=== PATIENT | female | born 1955 | race Hispanic/Latino ===

== ENCOUNTER → 2022-08-26 10:16 | Outpatient (CLI) | payer OTHER, SELFPAY ==
[2022-08-26 11:36] LABS: COVID19 -Nasal RAPID Negative (Negative)
== END ==
PROVIDERS: PCP Nurse Practitioner Adult Health; Referring Provider Orthopaedic Surgery; Visit Provider Orthopaedic Surgery
DX: Z20.822 Contact with and (suspected) exposure to COVID-19 (principal)
CPT/HCPCS: 87635; C9803

== ENCOUNTER 2022-08-28 10:07 | Day surgery (SDC) | payer OTHER, SELFPAY ==
[2022-08-21 10:01] VITALS: BMI 40.7
[2022-08-28] VITALS (13 sets, daily range): BP systolic 77–152; BP diastolic 42–70; PULSE 45–73; RESP 12–20; TEMP 36–36.6; O2SAT 52–99; BMI 40.7
--- NOTE | 2022-08-28 06:00 | DI.RAD.S_ITS ---
PROCEDURE: XR KNEE RT 1TO2V INDICATIONS: TKA TECHNIQUE: 2 view(s) of the knee acquired. COMPARISON: None. FINDINGS: Bones: Patient is status post knee joint arthroplasty. Hardware components are in expected positions. Visualized bony structures are intact. Soft tissues: Overlying postoperative changes are noted. IMPRESSION: Right knee arthroplasty with expected postoperative changes. Dictated by: Justin Pickett M.D. on 08/28/2022 at 15:02 Approved by: Justin Pickett M.D. on 08/28/2022 at 15:03
[2022-08-28] MEDS: CELECOXIB 200 MG CAPSULE PO (11:08)
[2022-08-28] MEDS: LACTATED RINGERS 1,000 ML 42 ML IV ×2 (11:08→14:13)
[2022-08-28] MEDS: PREGABALIN 75 MG CAPSULE PO (11:08)
[2022-08-28] MEDS: ACETAMINOPHEN 325 MG TABLET 975 MG PO (11:09)
--- NOTE | 2022-08-28 12:09 | PM.PREOP ---
Pre-operative Note COVID-19 COVID-19 status: Negative Result date/Date tested (Pos, Neg/Pending): 08/26/22 Interval Note History & Physical reviewed/Exam performed by Physician: Yes Changes to H&P: No
[2022-08-28] MEDS: CEFAZOLIN 2 GM/100 ML PREMIX 100 ML IV ×2 (12:52→18:14)
[2022-08-28] MEDS: TRANEXAMIC ACID 1,000 MG VIAL 2000 MG INJ ×2 (13:10→14:13)
--- NOTE | 2022-08-28 13:18 | SUR.OPER ---
Supine on padded OR bed, head on pillow, arms secured on padded arm boards at <90 degrees abduction, legs uncrossed, safety belt at abdomen, tape over blanket over lower left leg. right leg secured in [employer] positioner and padded with foam. Secured with coban
[2022-08-28] MEDS: BUPIVACAINE LIPOSOME 266 MG/20 ML VIAL INJ (13:37)
[2022-08-28] MEDS: BUPIVACAINE 0.5% W/ EPI (PF) 30 ML VIAL INJ (13:38)
[2022-08-28] MEDS: MORPHINE 4 MG/ML INJ INJ (13:39)
--- NOTE | 2022-08-28 14:41 | P.OP_ITS ---
Operative Date/Time/Diagnoses Date of procedure: 08/28/22 Time of procedure: 14:41 Pre-op diagnosis: Right knee osteoarthritis Post-op diagnosis: same Procedure & Clinicians Procedure: Right total knee replacement Same procedure as scheduled: Yes Indications: The patient has had progressively worsening right knee pain with radiographic changes consistent with arthritis. Non-operative management has failed and the patient has requested total knee replacement. The risks, benefits and alternatives to surgery were discussed with the patient prior to proceeding. Risks discussed included, but were not limited to, failure to relieve pain, stiffness, infection, nerve damage, deep venous thrombosis, pulmonary embolism, stroke, coma, heart attack, permanent paralysis and , as well as the potential need for eventual revision of the prosthetic. Surgeon: Joseph Manjarrez Spouting Installer: Ochoa Edmondson Click Yes if Unassisted: No Anesthesia Type: General, Spinal and Local Operative Notes Findings: Severe medial compartment osteoarthritis with moderate patellofemoral change, there was severe erosion of the medial tibial plateau, necessitating the use of a stabilized tibial prosthesis. Closure Type: primary Specimen(s): none sent Prosthetic devices, grafts, tissues, transplants, or devices: Implants used in this procedure were manufactured by the [employer] and included the BCS II Journey total knee replacement with a size 3 right non porous tibial base plate with a 10 mm cross-linked polyethylene constrained tibial insert. There was a size 3 right Oxinium femoral component and a 29 mm oval Lary II patella. Applied: implant(s) Estimated Blood Loss (mL): 25 Blood products transfused: none Tourniquet time (min): 56 Procedure in detail: The patient was seen in the pre-operative area, where the patient identified the right knee as the operative site and this was marked with my initials. The patient received pre-operative antibiotics, and was taken to the operating room and placed on the operative table in the supine position. After satisfactory anesthesia, a manager maritime out was performed. The right leg was encircled with a tourniquet about the proximal thigh, and the leg was prepared from the toes to the tourniquet with ChloroPrep in the usual fashion and draped through sterile drapes. The leg was elevated and exsanguinated with Eschmark bandage and the tourniquet inflated to 250 mmHg pressure. The knee was approached through an approximately 18 cm incision centered over the patella and carried into the knee through a medial parapatellar arthrotomy. The anterior osteophytes and soft tissues were removed. The rotational landmarks of [place]'s line and the transepicondylar axis were marked on the femur with electrocautery, and intramedullary guide holes for the femur and tibia were created. The distal femoral cut was made in 6 degrees of valgus using the intramedullary guide at the primary cut setting. The proximal tibial cut was then made using the intramedullary guide, taking 9 mm of bone off the less involved side. The extension gap was checked and the rotation of the femoral component confirmed with the gap balancing system. The anterior, posterior and chamfer cuts were then made. The posterior osteophytes and soft tissues were then removed. The posterior capsule was injected with part of a mixture of 60 ml 0.25% Marcaine mixed with 20 ml Exparel and 4 mg of morphine for post-operative pain control. The remainder of this mixture was injected into the capsule and subcutaneous tissues during cement curing. The tibia was prepared with the rotation set by an extra medullary guide. Trial tibial and femoral components were then placed and the intercondylar notch cut through the femoral trial. Range of motion was 0-135 degrees, with good stability throughout the range using a stabilized tibial insert. The patella was then cut to accommodate the patellar prosthetic. There was no need for a lateral release. The trials were then removed, and the femoral hole plugged with a bone plug. The bone was prepared with pulsatile lavage, and dried with a sponge. Cement was applied and the final prosthetics placed. Excess cement was removed during and after cement curing. After confirming there was no extruded cement posteriorly, the final tibial insert was placed. The knee was copiously irrigated and the tourniquet deflated. Hemostasis was obtained. The capsule was closed with interrupted # 2 polyester suture. The subcutaneous layer was closed with 3-0 Vicryl, and the skin with edilson. An Aquacel Ag dressing was applied and the patient was taken to recovery having tolerated the procedure well. The services of a skilled surgical instrument mechanic were necessary during this procedure to provide positioning, retraction to protect vital structures and exposure. Without the services of Mr. Edmondson, the procedure could not have been accomplished in a safe, expedient fashion Complications: none Post-operative Condition: stable Disposition: PACU Plan for aftercare: The patient will be maintained on a standard total knee replacement protocol with weight bearing as tolerated. The patient will receive aspirin and seque ntial compression devices for DVT prophylaxis. The patient will be discharged home when safe for the home environment.
[2022-08-28] MEDS: OXYCODONE IR 5 MG TABLET PO ×3 (15:01→23:20)
--- NOTE | 2022-08-28 15:31 | PC.NURSE ---
Day shift: Patient arrived to room approximately 1520. 97% on room air. CMS intact. Surgical dressing marybel wrapped with aquacel on right knee CDI. VSS. Will continue to monitor.
--- NOTE | 2022-08-28 16:11 | PC.NURSE ---
Addendum entered by [place] R.N. 08/28/22 16:55: Day shift: 1654 Dr. Manjarrez called back regarding the bradycardia. Stated he is okay with it as long as she is asymptomatic. No new orders. Will continue to monitor. Original Note: Day shift: Patient is bradycardic, high 40's low 50's. Left message on Dr. Manjarrez' cell. Spoke with the PA Yolanda just now, PA assessing patient right now.
[2022-08-28] MEDS: LACTATED RINGERS 1,000 ML 100 ML IV ×2 (16:26→21:47)
[2022-08-28] MEDS: IBUPROFEN 400 MG TABLET PO ×2 (17:11→20:21)
[2022-08-28] MEDS: ACETAMINOPHEN 325 MG TABLET 650 MG PO ×2 (17:11→23:19)
[2022-08-28] MEDS: ASPIRIN EC 81 MG TABLET PO (20:21)
[2022-08-28] MEDS: DOCUSATE 100 MG CAPSULE PO (20:21)
[2022-08-28] MEDS: OXYCODONE IR 10 MG TABLET PO (20:21)
[2022-08-29] MEDS: IBUPROFEN 400 MG TABLET PO ×6 (01:50→21:51)
[2022-08-29 03:00] VITALS: BP 109/46; PULSE 52; RESP 18; TEMP 36.2; O2SAT 95
[2022-08-29] MEDS: CEFAZOLIN 2 GM/100 ML PREMIX 100 ML IV (03:28)
[2022-08-29] MEDS: hydrOXYzine pamoate 25 MG CAPSULE PO (03:35)
[2022-08-29] MEDS: ACETAMINOPHEN 325 MG TABLET 650 MG PO ×3 (05:55→18:14)
[2022-08-29 06:02] VITALS: BP 117/52; PULSE 48; RESP 18; O2SAT 97
--- NOTE | 2022-08-29 06:04 | PC.NURSE ---
Patient's right knee pain well controlled with scheduled Tylenol and Ibuprofen plus Oxy 5 mg x1, Oxy 10 mg x1, and Vistaril x1 during the night. Patient's HR in mid to upper 40's throughout night, BP currently 117/52. Patient c/o dizziness when up. LR infusing at 100cc/hr. Patient denies any SOB or nausea. Up to BR with assist of one and FWW, bed alarm on.
[2022-08-29 07:00] VITALS: BP 122/50; PULSE 46; RESP 17; TEMP 36.4; O2SAT 98
[2022-08-29 07:07] LABS: Hematocrit 34.3 % (36-46); Hemoglobin 11.2 g/dL (12.0-16.0)
--- NOTE | 2022-08-29 07:59 | PM.PNPO.1 ---
Subjective Subjective Date Patient Seen: 08/29/22 Time Patient Seen: 07:59 Interval history: Pt sitting up in bed, not comfortable but not writhing in pain. She is primarily taiwanese-speaking, though she seems to understand my marshallese and repond in marshallese appropriately. She has been out of bed 3 times overnight to use the bathroom, and while she has no difficulty voiding, she has quite a bit of knee pain. She has not worked w/ PT yet. Exam Vital Signs (past 8 hours): - 08/29/22 03:00 08/29/22 06:02 Temperature 97.1 F L Pulse Rate 52 L 48 L Respiratory Rate 18 18 Blood Pressure 109/46 L 117/52 L Pulse Oximetry 95 97 Oxygen Flow Rate 0 0 Oxygen Delivery Method Room Air Oxygen Flow Rate 0 Narrative Exam Narrative: Very hesitant with all movement. 3/5 hip flexors, quadriceps, hamstrings, DF, PF, EHL on right. Sensation to light touch intact throughout RLE. Calf soft, compressible, nontender and without palpable cords or masses. JUSTINE and Aquacel CDI. Objective Labs 08/29/22 06:29 Labs: Laboratory Results - last 24 hr 08/29/22 06:29 Hgb 11.2 L Hct 34.3 L PFSH Medical History COVID-19 virus infection (~10/2019) Depression Osteoarthritis Cam[place]onian speaking patient Surgical History (Updated 08/29/22 @ 08:04 by Esther Garner PA-C) Hx of eye surgery Social History household members: other Smoking Status: Never smoker alcohol intake: current Assessment & Plan Post-op Assessment and plan (1) Total knee replacement status: Assessment and Plan narrative: PT, SCDs and ASA for VTE prophylaxis, multimodal pain control. Disposition per PT and case management; pt has no help at home. (2) Acute postoperative anemia due to expected blood loss: Assessment and Plan narrative: No intervention needed at this time. (3) Bradycardia following surgery: Assessment and Plan narrative: In review of preop EKG from 08/05/2022, HR was 52, so pt is relatively at baseline. Recommend continue IVF through today. Will continue to follow. Postoperative Procedures: Procedures Operation Date: 08/28/22 12:45 Actual Procedure Side Surgeon p Total Knee Arthroplasty Right Joseph Manjarrez MD Postoperative day: 1
[2022-08-29] MEDS: OXYCODONE IR 5 MG TABLET PO ×4 (08:02→18:13)
[2022-08-29] MEDS: DOCUSATE 100 MG CAPSULE PO ×2 (08:02→20:25)
[2022-08-29] MEDS: ASPIRIN EC 81 MG TABLET PO ×2 (08:02→20:25)
--- NOTE | 2022-08-29 10:15 | PT.IIE ---
Current Diagnoses Acute posthemorrhagic anemia (08/28/22) Other postprocedural complications and disorders of the circulatory system, not elsewhere classified (08/28/22) Unilateral primary osteoarthritis, right knee (08/28/22) Presence of unspecified artificial knee joint (08/28/22) Surgery Performed Operation Date: 08/28/22 12:45 Actual Procedures p Total Knee Arthroplasty(Right) - Joseph Manjarrez MD Surgical History (Last Reviewed 08/28/22 @ 10:37 by Caridad Villegas RN) Hx of eye surgery Medical History COVID-19 virus infection (~10/2019) Depression Osteoarthritis [place] speaking patient Physical Therapy Inpatient Evaluation/Re-Eval M1 PT/OT-IP Prior Functional Status Start: 08/29/22 12:41 Freq: NEEDED Status: Active Protocol: Document 08/29/22 10:15 AB (Rec: 08/29/22 13:04 AB [email or web address]) Medical Review Prior Functional Status Medical History Reviewed Yes Communication able to make needsknown Mobility and Gait pt stated that she is modified indepednet with all moblities using her hurrycane for ambulation but occasionally uses a FWW Social History Household Members other Living Arrangements Apartment/Condo Number of Floors (Floors) Two Floors Number of Stairs To Enter/Railing? no steps to enter the apartment but has 15 steps L rail ascending to get to bedroom level Home Environment Standard Height Toilet,Tub/ Shower Home Equipment Front Wheel Walker,Shower Seat with Backrest Additional Social History Comment pt stated that she has a roommate but cannot assist her ; pt stated that her other option is to go to her sister' s house but has not asked her sister yet pt has a hurrycane M2 PT-IP Current Condition Start: 08/29/22 12:41 Freq: NEEDED Status: Active Protocol: Document 08/29/22 10:15 AB (Rec: 08/29/22 13:04 AB [email or web address]) Physical Therapy Current Condition Current Condition Evaluation Date 08/29/22 Treatment Diagnosis s/p R TKA; difficulty in walking Onset Date 08/28/22 M3 PT-IP Subjective Start: 08/29/22 12:41 Freq: NEEDED Status: Active Protocol: Document 08/29/22 10:15 AB (Rec: 08/29/22 13:04 AB [email or web address]) Subjective Physical Therapy Visit Type Type Initial Evaluation Visit Start Time 10:15 Visit Stop Time 10:55 Total Visit Minutes 40 Number of PARTS CLASSIFIER Visits 0 Physical Therapy Visit Comments Patient Comments agreeable to do PT Therapy Pain Assessment Pain When Pain Assessed At Rest Pain Present Pain Present Pain Reported Location right knee Intensity 4 Scale Used increases with mobility Pain Management Techniques Apply Cold,Distraction, Modification of Treatment,Re- positioning,Timing of Activity with Medications M4 PT-IP Mobility and Gait Start: 08/29/22 12:41 Freq: NEEDED Status: Active Protocol: Document 08/29/22 10:15 AB (Rec: 08/29/22 13:04 [email or web address]) PT-Bed Mobility Assessment Supine to Sit Supine to Sit Standby Assistance PT-Transfer Assessment Sit to and From Stand Sit to and from Stand Moderate Assistance,1 Person Assistance,Use of Upper Extremities Equipment Transfer Assistive Device Gait Belt,Front Wheeled Walker Orthotic/Prosthetic Devices or Brace: No Transfers Transfer Destination Chair Transfer Technique Stand Step Pivot Transfer Ability Level of Assist Moderate Assistance,1 Person Assistance,Use of Upper Extremities Comments Mobility Comments BP: 116/49 completed supine to sit SBA and cues. pt required increase time to complete task. pt able to sit on EOB SBA. BP : 124/52. completed sit to stand mod A and cues and took ~ 2-3 steps to transfer onto the chair using FWW mod A and max cues. presents with unsteady steps and decrease step elevation. c/o increase knee pain. refused further ambulation due to pain and fatigue but agreed to sit up on the chair. positioned on the chair. call light and table placed within reach. informed pt regarding current level of assistance and possible needing SNF rehab and pt agreed. Gait Assessment Assistive Devices Orthotic/Prosthetic Devices or Brace: No Comments Gait Comments able to take steps for transfers PT-Balance Assessment Sitting Balance and Reactions Static Sitting Balance Ability Normal Dynamic Sitting Balance Ability Good Standing Balance and Reactions Static Standing Balance Ability Fair Dynamic Standing Balance Ability Fair Device Used FWW M5 PT-IP Objective Assessments Start: 08/29/22 12:41 Freq: NEEDED Status: Active Protocol: Document 08/29/22 10:15 AB (Rec: 08/29/22 13:04 [email or web address]) Orientation Orientation/Cognition Level of Alertness Alert Orientation Name,Place,Situation Language Function Ability Swedish as Second Language Safety Awareness Decreased Safety Awareness Gross Range of Motion Lower Extremity ROM Assessment Right Impaired Impairments R knee flexion: ~ 30 deg Strength Lower Extremity Strength Assessment Bilaterally Impaired Ankle R ankle foot drop Comments Strength Comments LLE: 4-/5 RLE: 3+/5 Muscle Tone Muscle Tone WNL Yes M6 PT-IP Treatment Start: 08/29/22 12:41 Freq: NEEDED Status: Active Protocol: Document 08/29/22 10:15 AB (Rec: 08/29/22 13:04 AB [email or web address]) Physical Therapy Treatment Exercises Exercises Heel Slides Education Education Provided Precautions,Weight Bearing Status,Post-Op Packet,Safety M7 PT-IP Assessment and Plan Start: 08/29/22 12:41 Freq: NEEDED Status: Active Protocol: Document 08/29/22 10:15 AB (Rec: 08/29/22 13:04 AB [email or web address]) PT Summary Assessment and Plan Potential Rehabilitation Potential Fair Status of Condition at Evaluation Evolving Summary Impairments Pain,ROM,Strength,Balance, Coordination,Sensation,Tone, Cognition,Bed Mobility, Transfers,Gait,Activity Tolerance Assessment Summary pt requiring mod A with transfers using FWW. c/o increase knee pain and fatigue and unable to ambulate this morning. pt has 15 steps to enter the house and is not appropriate to do stair climbing at this time. pt will not have assistance at home and needs to be more independent to safely d/c home . pt will require SNF rehab at this time. will continue to assess progress. Goals Bed Mobility Goal Independent Transfer Goal Independent,Front Wheeled Walker Gait Goal Independent,Front Wheel Walker Gait Distance 150 Other Goals up/down 15 steps using L rail ascending SBA Days to Meet Goals 10 Frequency of Treatment Frequency Of Treatment Twice a Day Treatment Plan Physical Therapy Treatment Plan Bed Mobility Training,Transfer Training,Gait Training, Therapeutic Exercise,Balance Retraining,Post Op Education, Discharge Planning,Hot or Cold Pack,Neuromuscular Re-ed, Coordination Retraining,Manual Therapy Weight Bearing Status Weight Bearing Status Weight Bear as Tolerated Allowed Weight Bearing Amount (enter % RLE WBAT or #) (%) Recommendations To Nursing Amount of Assist Needed 1 Person Assist Discharge Recommendations PT Discharge Recommendations SNF Rehab Transportation Needs at Discharge Wheelchair/Cabulance
[2022-08-29 11:00] VITALS: BP 115/49; PULSE 47; RESP 17; TEMP 36.7; O2SAT 96
[2022-08-29] MEDS: LACTATED RINGERS 1,000 ML 100 ML IV ×2 (12:03→21:52)
--- NOTE | 2022-08-29 14:35 | PT.IPTN ---
Current Diagnoses Acute posthemorrhagic anemia (08/28/22) Other postprocedural complications and disorders of the circulatory system, not elsewhere classified (08/28/22) Unilateral primary osteoarthritis, right knee (08/28/22) Presence of unspecified artificial knee joint (08/28/22) Surgery Performed Operation Date: 08/28/22 12:45 Actual Procedures p Total Knee Arthroplasty(Right) - Joseph Manjarrez MD Physical Therapy Treatment Note M2 PT-IP Current Condition Start: 08/29/22 12:41 Freq: NEEDED Status: Active Protocol: Document 08/29/22 10:15 AB (Rec: 08/29/22 13:04 AB [email or web address]) Physical Therapy Current Condition Current Condition Evaluation Date 08/29/22 Treatment Diagnosis s/p R TKA; difficulty in walking Onset Date 08/28/22 M3 PT-IP Subjective Start: 08/29/22 12:41 Freq: NEEDED Status: Active Protocol: Document 08/29/22 14:35 AB (Rec: 08/29/22 15:48 AB [email or web address]) Subjective Physical Therapy Visit Type Type Treatment Note Visit Start Time 14:35 Visit Stop Time 15:15 Total Visit Minutes 40 Number of HOUSECLEANER Visits 0 Physical Therapy Visit Comments Patient Comments agreeable to do PT; requesting to use the toilet Therapy Pain Assessment Pain When Pain Assessed At Rest Pain Present Pain Present Pain Reported Location right knee Intensity 4 Scale Used Numeric (0 - 10) Pain Management Techniques Apply Cold,Distraction, Modification of Treatment,Re- positioning,Timing of Activity with Medications M4 PT-IP Mobility and Gait Start: 08/29/22 12:41 Freq: NEEDED Status: Active Protocol: Document 08/29/22 14:35 AB (Rec: 08/29/22 15:48 AB [email or web address]) PT-Bed Mobility Assessment Sit to Supine Sit to Supine Minimal Assistance,1 Person Assistance PT-Transfer Assessment Sit to and From Stand Sit to and from Stand Minimal Assistance,Moderate Assistance,1 Person Assistance ,Use of Upper Extremities Equipment Transfer Assistive Device Gait Belt,Front Wheeled Walker Orthotic/Prosthetic Devices or Brace: No Transfers Transfer Destination Bed,Toilet Transfer Technique ambulated Transfer Ability Level of Assist Minimal Assistance,Moderate Assistance,1 Person Assistance ,Use of Upper Extremities Comments Mobility Comments pt sitting on the chair. sister in room with pt. sister stated that pt will be going to her house upon d/c and will be able to assist her . sister has 3 steps to enter the house with L rail ascending. pt completed sit to stand min A and cues. pt requested to use the toilet. ambulated to the toilet min to mod A and cues using FWW. pt continues to have a foot drop on RLE. cued for quads activation. required mod A for controlled descent to the toilet. sit to stand from the toilet using grab bar mod A and cues and pt ambulated to the sink using FWW mod and cues. required mod A for standing balance while completing handwashing. pt requested to go back to bed. ambulated to the bed using fWW mod A. completed sit to supine min A for RLE elevation. positioned pt in bed. call light and table placed within reach. caregiver training set up for tomorrow and sister will be able to come in at 9am tomorrow. Gait Assessment Gait Gait Assistance Required: Minimum Assistance,Moderate Assistance Distance (Feet) 15 M5 PT-IP Objective Assessments Start: 08/29/22 12:41 Freq: NEEDED Status: Active Protocol: Document 08/29/22 10:15 AB (Rec: 08/29/22 13:04 AB [email or web address]) Orientation Orientation/Cognition Level of Alertness Alert Orientation Name,Place,Situation Language Function Ability Estonian as Second Language Safety Awareness Decreased Safety Awareness Gross Range of Motion Lower Extremity ROM Assessment Right Impaired Impairments R knee flexion: ~ 30 deg Strength Lower Extremity Strength Assessment Bilaterally Impaired Ankle R ankle foot drop Comments Strength Comments LLE: 4-/5 RLE: 3+/5 Muscle Tone Muscle Tone WNL Yes M6 PT-IP Treatment Start: 08/29/22 12:41 Freq: NEEDED Status: Active Protocol: Document 08/29/22 14:35 AB (Rec: 08/29/22 15:48 AB [email or web address]) Physical Therapy Treatment Education Education Provided Safety M7 PT-IP Assessment and Plan Start: 08/29/22 12:41 Freq: NEEDED Status: Active Protocol: Document 08/29/22 14:35 AB (Rec: 08/29/22 15:48 AB [email or web address]) PT Summary Assessment and Plan Potential Rehabilitation Potential Fair Summary Impairments Pain,ROM,Strength,Balance, Coordination,Sensation,Tone, Cognition,Bed Mobility, Transfers,Gait,Activity Tolerance Progress Towards Goals Slow Progress due to Pain,Slow Progress due to Activity Tolerance Assessment Summary pt improving slowly and able to ambulate to the toilet this afternoon using FWW mod A and cues. pt continues to have drop foot on RLE and has decrease activity tolerance affecting mobility independent . Pt plans to go home to her sister's house upon d/c and caregive training set up for tomorrow at 9 am. pt has 3 steps L rail to enter the house and will complete stair climbing training prior to d/c . will continue to assess progress. Goals Bed Mobility Goal Independent Transfer Goal Independent,Front Wheeled Walker Gait Goal Independent,Front Wheel Walker Gait Distance 150 Other Goals up/down 3 steps using L rail ascending SBA Days to Meet Goals 10 Frequency of Treatment Frequency Of Treatment Twice a Day Treatment Plan Physical Therapy Treatment Plan Bed Mobility Training,Transfer Training,Gait Training, Therapeutic Exercise,Balance Retraining,Post Op Education, Discharge Planning,Hot or Cold Pack,Neuromuscular Re-ed, Coordination Retraining,Manual Therapy Weight Bearing Status Weight Bearing Status Weight Bear as Tolerated Allowed Weight Bearing Amount (enter % RLE WBAT or #) (%) Recommendations To Nursing Amount of Assist Needed 1 Person Assist Discharge Recommendations PT Discharge Recommendations Home with 24/02 Assist Available,Home Health Transportation Needs at Discharge Private Vehicle,Wheelchair/ Cabulance
[2022-08-29 15:00] VITALS: BP 127/48; PULSE 57; RESP 17; TEMP 36.1; O2SAT 98
--- NOTE | 2022-08-29 18:03 | CM.DANOTE ---
DCP: Assessment: 66 yo female admitted to in a POV under the care of Orthopedic Surgery team for a preplanned Right Total Knee Replacement that pt underwent on 08/28/22 due to progressively worsening right knee pain and hx of right knee osteoarthritis. This CM met with pt in her room. Introduced self and role to pt. Pt A+Ox4, Pt states that she lives alone in her apartment and that she has no help at home. Pt does have 2 daughters although she states that they work and that they cannot come help her. She reports that she does drive and that she used DME of walker and cane prior to surgery. This CM reviewed SNF placement with pt, via tablet and pt chose [facility] [place] as an option. Although this CM is still in process with reviewing HH service options with pt as pt is agreeable to live with her sister to progressively get strong enough to go home. With Patient's permission, patient's sister and main contact Mary feliciano, will bring in Patient's L and I top case assembler name and phone # tomorrow so that authorization can be obtained for HH services. PT/OT notes are pending. PCP: Kiersten Scott Insurance: [employer] P: Home to her sister's house with home health services. Sister is agreeable. Patient is agreeable. Discharge Planning/Care Management CM Discharge Assessment Start: 08/29/22 17:47 Freq: Status: Active Protocol: Document 08/29/22 17:47 SHIN (Rec: 08/29/22 18:02 SHIN [id number]) Discharge Planning Assessment Assigned Behavioral Health Rn Neema Riley RN Case Manager Advance Directives? No History Provided By Patient Has Patient been admitted in last 30 No days? Prior Living Arrangements Apartment/Condo Household Members none Type of transporation used prior to Drives own vehicle admit Independent with ADL's Yes Is patient alert and oriented? Yes Caregiver for Another No DME Already Rented / Owned FWW / Walker,Cane Comment She reports that she was using a cane and walker prior to her surgery Barriers to Discharge Yes Comment Pt lives alone, mobility/pain a barrier, Discharge Plan Home with Home Health Transportation Arrangement Sister to provide transportation Referrals Initiated Home Health If patient plan is home with home health No : Has signed face to face form been completed? Medicare Choice List Provided Yes Medicare choice list reviewed on patient electronic tablet with Has Agency SNF been contacted No Whiteboard Updated in Patient Room with Yes name and ext. # of Behavioral Health Rn Review Status In Process Next Review Type Continued Stay Review Pre-Anesthesia Assessment Start: 08/21/22 10:01 Freq: Status: Complete Protocol: Document 08/21/22 10:01 [facility] (Rec: 08/21/22 11:19 [facility] [id number]) Pre-Anesthesia Assessment PAC Comment Pt will try to bring someone with her who can interpret Preferred Name Milly Patient Information Reviewed Via Phone Assessment Assessment Completed With Patient,Audioprosthologist Comment Audioprosthologist: Language Exchange [phone] Consent for Planned Operative Procedure( Yes s) Verified Diagnostic Results BMP/CMP,CBC,EKG Comment Outside labs/EKG scanned, COVID screen @ 08/26/22 Primary Care Provider Sofi Pederson Seen Specialist in Last 12 Months Yes Specialist Seen Orthopedist Primary Language Healthcare Consulting Manager Required Yes Height 147.32 cm Weight 88.451 kg Body Mass Index (BMI) 40.7 Hearing Ability Normal Visual Assist Glasses Dentition Type Teeth, Natural Present,Teeth, Broken,Teeth, Missing Barriers to Learning Language Hx Anesthesia Reactions No Hx Family Anesthesia Reaction No Hx Malignant Hyperthermia No Hx Blood Transfusions No Anesthesia Review Requested No Manager Environmental Health And Safety Yes: Pt does not have assistance for care at home alcohol intake current Alcohol Intake Frequency Other: Occasional Smoking Status Never smoker Substance Use Type does not use Pain Present Pain Reported Musculoskeletal Symptoms Abnormal Gait,Difficulty Walking,Joint Pain History of Falling (Recent or History of Yes ) Patient is completely paralyzed or No completely immobile Prosthesis or Orthotic Device Cane,Front Wheel Walker Mental Status Oriented to own ability Is patient on oxygen? No Does patient have OCAMPO/SOB No Hx Sleep Apnea No Currently Taking a Beta Abran No Can You Climb a Flight of Stairs Without Not asked SOB Hx Chest Pain No Hx SOB No Hx Syncope or Dizziness No Anti-Coagulant Therapy No Has a Training Analyst No Cardiac Testing No Hx Pacemaker/ICD No Pacemaker Rep Required? No Cardiac Clearance Received Not Applicable Diet Type At Home Regular Dysphagia No Gastrointestinal Symptoms None Urinary Catheter Present No Hx Urinary Self Catheterization No Diabetes No Patient No Lactating No Hx Drug Resistant Organism No Presence of External or Internal Medical No Devices Have you had any close contact with No someone diagnosed with COVID-19? Received a COVID vaccine? Yes Received all doses? Yes Marital Status Lives With other Current Living Arrangements Apartment/Condo Number of Floors (Floors) One Floor Support System None Does the Patient Have Assistance After No Surgery Patient Discharge Plan Description Group Home Facility/Rehab Comment Pt states she asked surgeon about going to a SNF at [place] Feels Safe in Current Environment Yes Been Physically Hurt or Threatened By a No Person in Current Environment Do you have thoughts of harming yourself None or others? Are you currently considering suicide? No Do you have a plan to hurt yourself or No Plan others? Do You Have Any Spiritual Beliefs That No May Affect Your HC Choices? Do You Have Any Cultural Practices That No May Affect Your HC Choices? Comment Muslim Who Can We Speak to About Patient's Care Family, friends Identifying Code for Release of Patient Declines to issue Information Health Care Proxy/Next of Kin Marlys (daughter) Destinee ( daughter) Health Care Proxy Phone Number Marlys: [phone] Destinee : [phone] Emergency Contact Name Marlys (daughter) Destinee ( daughter) Blaise (boyfriend) Emergency Contact Phone Number Marlys: [phone] Destinee : [phone] Blaise: Advance Directives? No Power of Secondary English Teacher No PAC Instructions Do not shave/clip surgical site,Durable medical equipment ,Medications to take/avoid, Nasal antibiotic,No ETOH/ petroleum product on skin DOS, NPO,Pre-surgical wash,Sensory aids,Sturdy shoes/comfortable clothes,Do not bring valuables and remove jewelry
[2022-08-29] MEDS: polyethylene glycoL 3350 17 GM POWD.PACK PO (18:21)
[2022-08-29 20:34] VITALS: BP 121/54; PULSE 48; RESP 18; TEMP 36.4; O2SAT 98
[2022-08-30] VITALS: BP 132/55; PULSE 58; RESP 17; TEMP 35.9; O2SAT 100
[2022-08-30] MEDS: ACETAMINOPHEN 325 MG TABLET 650 MG PO ×2 (00:07→05:32)
[2022-08-30 04:00] VITALS: BP 132/46; PULSE 51; RESP 17; TEMP 36.1; O2SAT 98
[2022-08-30] MEDS: IBUPROFEN 400 MG TABLET PO ×2 (05:32→09:37)
[2022-08-30 07:00] VITALS: BP 134/53; PULSE 48; RESP 17; TEMP 36.4; O2SAT 98
--- NOTE | 2022-08-30 08:43 | PM.DS.1 ---
History of Present Illness History of Present Illness Date Patient Seen: 08/30/22 Time Patient Seen: 08:43 Chief complaint: Right TKA *OPB* Narrative: Patient is sitting up comfortably in bed this morning. She states she is doing well and her pain has been well-controlled. She is been up to the bathroom and states mild increased soreness after doing so. He is also been up with physical therapy and notes no difficulty. She states she has arranged to go home with her sister in [place] who has less stairs. She would like to go home today and feels ready to do so. Discharge Providers Provider Discharge Date: 08/30/22 Primary care physician: FEROZ Olivera Consults: 08/28/22 15:35 Consult to Discharge Planning Routine Comment: Consult to Physical Therapy Evaluate & Treat Comment: Physician Instructions: postop TKA protocol 08/28/22 18:49 Consult to CONSTRUCTION MANAGEMENT INSTRUCTOR - Pharmacy Assistant Routine Comment: Discharge provider: Tish Mcdowell PA-C Summary Hospital Course Discharge Diagnosis: Right TKA Hospital Course: Operative Date/Time/Diagnoses Date of procedure: 08/28/22 Time of procedure: 14:41 Pre-op diagnosis: Right knee osteoarthritis Post-op diagnosis: same Procedure & Clinicians Procedure: Right total knee replacement Same procedure as scheduled: Yes Indications: The patient has had progressively worsening right knee pain with radiographic changes consistent with arthritis. Non-operative management has failed and the patient has requested total knee replacement. The risks, benefits and alternatives to surgery were discussed with the patient prior to proceeding. Risks discussed included, but were not limited to, failure to relieve pain, stiffness, infection, nerve damage, deep venous thrombosis, pulmonary embolism, stroke, coma, heart attack, permanent paralysis and , as well as the potential need for eventual revision of the prosthetic. Surgeon: Joseph Manjarrez Meter Calibrator: Ochoa Edmondson Click Yes if Unassisted: No Anesthesia Type: General, Spinal and Local Operative Notes Findings: Severe medial compartment osteoarthritis with moderate patellofemoral change, there was severe erosion of the medial tibial plateau, necessitating the use of a stabilized tibial prosthesis. Closure Type: primary Specimen(s): none sent Prosthetic devices, grafts, tissues, transplants, or devices: Implants used in this procedure were manufactured by the [employer] and included the BCS II Journey total knee replacement with a size 3 right non porous tibial base plate with a 10 mm cross-linked polyethylene constrained tibial insert.? There was a size 3 right Oxinium femoral component and a 29 mm oval Lary II patella. Applied: implant(s) Estimated Blood Loss (mL): 25 Blood products transfused: none Tourniquet time (min): 56 Exam Vital Signs (past 8 hours): - 08/30/22 04:00 08/30/22 07:00 Temperature 96.9 F L 97.5 F L Pulse Rate 51 L 48 L Respiratory Rate 17 17 Blood Pressure 132/46 L 134/53 L Pulse Oximetry 98 98 Oxygen Flow Rate 0 0 Oxygen Delivery Method Room Air Oxygen Flow Rate 0 Narrative Exam Narrative: Pleasant 66-year-old female sitting upright in bed. Dorsiflexion 4/5 to right lower extremity. All other strength 5/5, sensation intact to bilateral lower extremities. Intraoperative dressing and Bill bandage clean, dry, intact. Currently icing knee. Calves soft, compressible, nontender with no palpable cords or masses. Objective Labs 08/29/22 06:29 [facility] Medical History COVID-19 virus infection (~10/2019) Depression Osteoarthritis Barbadian speaking patient Surgical History Hx of eye surgery Social History household members: none Smoking Status: Never smoker alcohol intake: current Discharge Assessment & Plan Assessment and Plan Assessment: s/p R TKA Plan of Treatment: Patient is progressing as expected after right total knee arthroplasty. She plans to go home today with her sister to [place]. We discussed home health which I do not think it is necessary as she has her 1st physical therapy session scheduled for next FridaySeptember 04. She has a ride available to take her to these appointments. Her sister is available to assist as needed. Patient needs prescriptions for oxycodone, ibuprofen, and aspirin which were sent to her pharmacy. Discharge Plan Discharge Plan Patient Disposition: Home Provider Discharge Comment: Discharge home once cleared by PT. Discharge orders & Medications Discharge Orders: Discharge (Order); Ordered 08/30/22 Ordered By: Tish Mcdowell Prescriptions: New oxycodone 5 mg Tablet 5 mg PO Q4-6H PRN (Reason: Pain, Moderate (4-6)) Qty: 42 0RF aspirin 81 mg Tablet,Delayed Release (Dr/Ec) 81 mg PO BID Qty: 84 0RF ibuprofen 400 mg Tablet 400 mg PO Q4HR Qty: 120 0RF Continued trazodone 50 mg Tablet 50 mg PO BEDTIME PRN (Reason: Sleep) famotidine 40 mg Tablet 40 mg PO DAILY PRN (Reason: GI Upset) acetaminophen 650 mg Tablet Extended Release 1,300 mg PO Q12H Follow up/Referrals: Kiersten Scott ARNP [Primary Care Provider] - Joseph Manjarrez MD [Physician] - As previously scheduled (Follow up w/ Ochoa Edmondson PA-C, on 09/11/2022 @ 1:00 pm at [facility] office in [place].) Diet/Activity/Treatments Diet: Diet as Tolerated Activity: Walk frequently! Cold/Heat Therapy: Ice to knee as needed for pain. Skin/Wound/Dressing Care Report to your healthcare provider any signs of infection, such as:: chills, fever, night sweats, unusual drainage and unusual redness Dressing: May remove BILL wrap and shower on 08/31/2022. Leave Aquacel dressing in place until follow up in office. No bathing or otherwise soaking incision. Call the office if the dressing becomes saturated inside. Visit Report/Discharge Packet Instructions: DI for Knee Replacement Stand Alone Forms: Patient Portal/API, Stroke Signs & Symptoms Discharge Data Primary Care Provider: Kiersten Scott Attending Provider: Joseph Manjarrez
--- NOTE | 2022-08-30 09:00 | PT.IPTN ---
Addendum entered and electronically signed by Kalee Mckenzie PT 08/30/22 12:28: FWW dispensed to pt as requested and papers signed. Original Note: Current Diagnoses Acute posthemorrhagic anemia (08/28/22) Other postprocedural complications and disorders of the circulatory system, not elsewhere classified (08/28/22) Unilateral primary osteoarthritis, right knee (08/28/22) Presence of unspecified artificial knee joint (08/28/22) Surgery Performed Operation Date: 08/28/22 12:45 Actual Procedures p Total Knee Arthroplasty(Right) - Joseph Manjarrez MD Physical Therapy Treatment Note M2 PT-IP Current Condition Start: 08/29/22 12:41 Freq: NEEDED Status: Discharge Protocol: Document 08/29/22 10:15 AB (Rec: 08/29/22 13:04 AB [id number]) Physical Therapy Current Condition Current Condition Evaluation Date 08/29/22 Treatment Diagnosis s/p R TKA; difficulty in walking Onset Date 08/28/22 M3 PT-IP Subjective Start: 08/29/22 12:41 Freq: NEEDED Status: Discharge Protocol: Document 08/30/22 09:00 AB (Rec: 08/30/22 12:18 AB [email or web address]) Subjective Physical Therapy Visit Type Type Treatment Note Visit Start Time 09:00 Visit Stop Time 09:55 Total Visit Minutes 55 Number of HEEL SPRAYER FIRST Visits 0 Physical Therapy Visit Comments Patient Comments agreeable to do PT Therapy Pain Assessment Pain When Pain Assessed At Rest Pain Present Pain Present Pain Reported Location right knee Intensity 4 Scale Used Numeric (0 - 10) Pain Management Techniques Distraction,Modification of Treatment,Re-positioning, Timing of Activity with Medications M4 PT-IP Mobility and Gait Start: 08/29/22 12:41 Freq: NEEDED Status: Discharge Protocol: Document 08/30/22 09:00 AB (Rec: 08/30/22 12:18 AB [id number]) PT-Bed Mobility Assessment Supine to Sit Supine to Sit Standby Assistance Sit to Supine Sit to Supine Minimal Assistance,1 Person Assistance,Head of Bed Elevated PT-Transfer Assessment Sit to and From Stand Sit to and from Stand Contact Guard Assistance,1 Person Assistance,Use of Upper Extremities Equipment Transfer Assistive Device Gait Belt,Front Wheeled Walker Orthotic/Prosthetic Devices or Brace: No Comments Mobility Comments pt sitting on the chair and sister in room for caregiver training. educated sister on how to use safety belt and how to assist pt. sister was able to put safety belt on pt and assisted pt with sit to stand CGA. ambulated with pt in room ~ 20 ft using FWW CGA. pt ambulated to EOB and pt's sister assisted her with elevating RLE up to bed for sit to supine. completed supine to sit SBA. pt agreed to do stairs. pt ambulated in the hallway ~ 40 ft using FWW with her sister assisting. pt and sister educated on stair climbing. Pt completed up/down step using L rail + hurrycane min A with PT assisting on first set and pt repeated again with sister assisting. assisted pt back to her room. requested to go back to bed. ambulated from w/c to bed with her sister assisting her and also assisted pt with sit to supine. positioned pt in bed. call light and table placed within reach. Gait Assessment Gait Gait Assistance Required: Contact Guard Assist Distance (Feet) 40 Able to Maintain Weight Bearing Status Yes During Gait Assistive Devices Assistive Device Gait Belt,Front Wheeled Walker Orthotic/Prosthetic Devices or Brace: No Gait Deviations General Gait Pattern Antalgic,Decreased Stride Length,Decreased Feet Clearance,Step-to Gait Factors Limiting Gait Function Factors Limiting Gait Function Decreased Activity Tolerance, Decreased Strength,Limited Range of Motion,Pain,Poor Balance,Poor Safety Awareness Stair Climbing Assessment Evaluation Level of Assist On Stairs Minimal Assistance Devices Stair Climbing Assistive Devices Tripod Cane/Hurry Cane,Left Railing Technique/Endurance Stair Climbing Direction Ascend and Descend Stair Climbing Technique Step to Step Number of Steps Climbed 3 Stair Climbing Set # Repetitions (reps) 2 Comments Stair Climbing Comments please refer to mobility section for details M5 PT-IP Objective Assessments Start: 08/29/22 12:41 Freq: NEEDED Status: Discharge Protocol: Document 08/29/22 10:15 AB (Rec: 08/29/22 13:04 AB [id number]) Orientation Orientation/Cognition Level of Alertness Alert Orientation Name,Place,Situation Language Function Ability Yi as Second Language Safety Awareness Decreased Safety Awareness Gross Range of Motion Lower Extremity ROM Assessment Right Impaired Impairments R knee flexion: ~ 30 deg Strength Lower Extremity Strength Assessment Bilaterally Impaired Ankle R ankle foot drop Comments Strength Comments LLE: 4-/5 RLE: 3+/5 Muscle Tone Muscle Tone WNL Yes M6 PT-IP Treatment Start: 08/29/22 12:41 Freq: NEEDED Status: Discharge Protocol: Document 08/30/22 09:00 AB (Rec: 08/30/22 12:18 AB [id number]) Physical Therapy Treatment Exercises Exercises Heel Slides Education Education Provided Safety M7 PT-IP Assessment and Plan Start: 08/29/22 12:41 Freq: NEEDED Status: Discharge Protocol: Document 08/30/22 09:00 AB (Rec: 08/30/22 12:18 AB [id number]) PT Summary Assessment and Plan Potential Rehabilitation Potential Good Summary Impairments Pain,ROM,Strength,Balance, Coordination,Sensation,Tone, Cognition,Bed Mobility, Transfers,Gait,Activity Tolerance Progress Towards Goals Progressing Toward Goals Assessment Summary caregiver training conducted and pt's sister was able to safely assist pt with mobility . pt plans to go home to her sister's house at this time. pt will benefit from HHPT. Goals Bed Mobility Goal Independent Transfer Goal Independent,Front Wheeled Walker Gait Goal Independent,Front Wheel Walker Gait Distance 150 Other Goals up/down 3 steps using L rail ascending SBA Days to Meet Goals 10 Frequency of Treatment Frequency Of Treatment Twice a Day Treatment Plan Physical Therapy Treatment Plan Bed Mobility Training,Transfer Training,Gait Training, Therapeutic Exercise,Balance Retraining,Post Op Education, Discharge Planning,Hot or Cold Pack,Neuromuscular Re-ed, Coordination Retraining,Manual Therapy Weight Bearing Status Weight Bearing Status Weight Bear as Tolerated Allowed Weight Bearing Amount (enter % RLE WBAT or #) (%) Recommendations To Nursing Amount of Assist Needed 1 Person Assist Discharge Recommendations PT Discharge Recommendations Home with 24/02 Assist Available,Home Health Transportation Needs at Discharge Private Vehicle,Wheelchair/ Cabulance
--- NOTE | 2022-08-30 09:04 | CM.DPC ---
DCP Cont: Met with patient and sister, , who is at bedside. Initially, was going to do home health, brought in an I-pad with reviews on home health agencies. They initially picked out [facility]. After some discussion, it was decided for patient to go to [facility], which is outpatient P.T. She has her first appointment on Fri, so no need to send out referral to home health. Patient confirmed that she does have transportation with sister for this appointment. Marie PAC, is aware of plan. P: DCP to continue to follow. Patient most likely will discharge today, will work with P.T. at 0900. She is asking for a walker, let her know that P.T. can have this DC Warehouse Analyst order one if necessary. Mindy Torre RN/Information Strategist
[2022-08-30] MEDS: DOCUSATE 100 MG CAPSULE PO (09:37)
[2022-08-30] MEDS: OXYCODONE IR 5 MG TABLET PO (09:38)
[2022-08-30] MEDS: ASPIRIN EC 81 MG TABLET PO (09:38)
--- NOTE | 2022-08-30 11:12 | PC.NURSE ---
Day shift: Discharge paperwork signed. Patient's IV discontinued, caregiving teaching provided by physical therapy to patient's sister and patient. All belongings with patient. FWW for home use provided by physical therapy. Questions answered during discussion of discharge paperwork. Prescriptions electronically sent to patient's preferred pharmacy. Patient wheeled via wheelchair to private vehicle by Gianna MARTE at 1115.
== END 2022-08-30 11:15 | disposition home or self-care (01) ==
LOC: OR 10:08 → AC 13:08
PROVIDERS: PCP Nurse Practitioner Adult Health; Referring Provider Nurse Practitioner Family; Visit Provider Orthopaedic Surgery
PROC: 0SRC0JZ Replacement of Right Knee Joint with Synthetic Substitute, Open Approach (ICD-10-PCS; CPT 27447; principal; 2022-08-28 12:45)
DX: M17.11 Unilateral primary osteoarthritis, right knee (principal); D62 Acute posthemorrhagic anemia; I97.191 Other postprocedural cardiac functional disturbances following other surgery
CPT/HCPCS: 27447; 36415; 73560; 85014; 85018; 97162; 97530; C1776; C1713; C9290; J0690; J1100; J2250; J2270; J2405; J2704; J3010

== ENCOUNTER 2023-11-04 08:31 | Day surgery (SDC) | payer OTHER, SELFPAY ==
[2022-08-28 18:35] VITALS: BMI 40.7
[2023-10-29 11:43] VITALS: BMI 43.7
[2023-11-04] VITALS (11 sets, daily range): BP systolic 122–177; BP diastolic 57–82; PULSE 49–59; RESP 12–18; TEMP 36.2–36.8; O2SAT 96–98; BMI 45.9
--- NOTE | 2023-11-04 06:00 | DI.RAD.S_ITS ---
PROCEDURE: XR KNEE LT 1TO2V INDICATIONS: left total knee TECHNIQUE: 2 view(s) of the knee acquired. COMPARISON: None. FINDINGS: Bones: Patient is status post knee joint arthroplasty. Hardware components are in expected positions. Visualized bony structures are intact. Soft tissues: Overlying postoperative changes are noted. IMPRESSION: Expected post-operative appearance of a knee arthroplasty. Dictated by: Britney Villanueva MD, PhD on 11/04/2023 at 16:11 Approved by: Britney Villanueva MD, PhD on 11/04/2023 at 16:11
[2023-11-04] MEDS: ACETAMINOPHEN 325 MG TABLET 975 MG PO (09:25)
[2023-11-04] MEDS: CELECOXIB 200 MG CAPSULE PO (09:25)
[2023-11-04] MEDS: LACTATED RINGERS 1,000 ML 42 ML IV ×2 (09:26→13:33)
[2023-11-04] MEDS: VANCOMYCIN 1,000 MG/200 ML PIGGYBACK 200 MG IV (11:10)
--- NOTE | 2023-11-04 11:46 | PM.PREOP ---
Pre-operative Note Interval Note History & Physical reviewed/Exam performed by Physician: Yes Changes to H&P: No
--- NOTE | 2023-11-04 11:47 | P.OP_ITS ---
Operative Date/Time/Diagnoses Date of procedure: 11/04/23 Time of procedure: 12:10 Pre-op diagnosis: left knee oa Post-op diagnosis: same Procedure & Clinicians Procedure: Left total knee arthroplasty Same procedure as scheduled: Yes Indications: The patient has had progressively worsening left knee pain with radiographic changes consistent with arthritis. Non-operative management has failed and the patient has requested total knee replacement. The risks, benefits and alternatives to surgery were discussed with the patient prior to proceeding. Risks discussed included, but were not limited to, failure to relieve pain, stiffness, infection, nerve damage, deep venous thrombosis, pulmonary embolism, stroke, coma, heart attack, permanent paralysis and , as well as the potential need for eventual revision of the prosthetic. Surgeon: Tona Bess Tunnel Elastic Operator Lockstitch: Tyrone Mcclelland Anesthesia Type: General Operative Notes Findings: Severe left knee OA, adequate stability Closure Type: primary Specimen(s): none sent Prosthetic devices, grafts, tissues, transplants, or devices: Bess and nephew BCS 2 size 3 femur, size 3 tibia, +10 poly, 32 x 7-1/2 mm patella Estimated Blood Loss (mL): 250 Blood products transfused: none Tourniquet time (min): 41 Procedure in detail: The patient was seen in the pre-operative area, where the patient identified the left knee as the operative site and this was marked with my initials. The patient received pre-operative antibiotics, and was taken to the operating room and placed on the operative table in the supine position. After satisfactory anesthesia, a director of health education out was performed. The left leg was encircled with a tourniquet about the proximal thigh, and the leg was prepared from the toes to the tourniquet with ChloroPrep in the usual fashion and draped through sterile drapes. The leg was elevated and exsanguinated with Eschmark bandage and the tourniquet inflated to [250] mmHg pressure. A PA was used during the procedure and was essential for intraoperative retraction and safe implantation of the components. The knee was approached through an approximately 18 cm incision centered over the patella and carried into the knee through a medial parapatellar arthrotomy. Portion of the medial and lateral meniscus was resected. We had problems with a venous tourniquet and were clearly bleeding through the tourniquet and we put the tourniquet down after 14 minutes and then reinflated it during cementing the components in. Soft tissue was carefully mobilized around the patella the patella was measured with a caliper. Bone was resected from the patella and the patellar height was reconstituted with up an appropriate sized patellar component. A cover was then placed on the patella. A small amount of additional medial and lateral meniscus was resected. Cori robotic navigation pins were placed 2 in the femur and the tibial guide was pinned to the tibia. The knee was meticulously mapped. We placed it through range of motion we checked the center of range of motion and looked at stressed and unstressed range of motion in order to optimize component location and implantation. The Cori robotic bur was used for the distal femoral resection. It looked like an appropriate distal femoral cut and the cut was made without difficulty. The rotation was assessed and the appropriate size femoral guide was placed on the distal femur and finishing cuts were made. There was no evidence of notching. The anterior, posterior and chamfer cuts were then made. The posterior osteophytes and soft tissues were then removed. The posterior capsule was injected with part of a mixture of 60 ml 0.25% Marcaine mixed with 20 ml Exparel for post operative pain control. The remainder of this mixture was injected into the capsule and subcutaneous tissues during cement curing. The tibia was prepared by using the guide and meticulously adjusting it and then careful navigate carefully navigated it. Proximal tibial cut was made without difficulty. It looked like an appropriate cut. The rotation was assessed. The patient was placed in extension residual medial and lateral meniscus as well as any residual bone was carefully resected. [No] additional tibia was resected. Hemostasis was achieved especially posteriorly. Additional local was injected into the posterior capsule. The femoral component was trial was placed and the notch was finished. Trial tibial and femoral components were then placed and the knee placed through a range of motion. Range of motion was [0-130], with good stability throughout the range. The trials were then removed, and the tibia was finished. The bone was prepared with pulsatile lavage, and dried with a sponge. Cement was applied and the final prosthetics placed. Excess cement was removed during and after cement curing. A brief Betadine soak was performed. After confirming there was no extruded cement posteriorly, the final tibial insert was placed. The knee was copiously irrigated and the tourniquet deflated. Hemostasis was obtained with the [Aquamantys system]. The capsule was closed with interrupted Vicryl suture. The subcutaneous layer was closed with barbed sutures, and the skin with a running 3-0 V-Lock suture and skin edilson. An bia dressing was applied and the patient was taken to recovery having tolerated the procedure well. Complications: none Post-operative Condition: stable Disposition: Acute Care Plan for aftercare: The patient will be maintained on a standard total knee replacement protocol with weight bearing as tolerated. The patient will receive aspirin 81 mg and sequential compression devices for DVT prophylaxis. The patient will be discharged home when safe for the home environment.
[2023-11-04] MEDS: TRANEXAMIC ACID 1,000 MG VIAL 2000 MG INJ ×2 (12:58→14:53)
[2023-11-04] MEDS: CEFAZOLIN 2 GM/100 ML PREMIX 100 ML IV ×2 (12:58→20:22)
--- NOTE | 2023-11-04 13:07 | SUR.OPER ---
Supine on padded OR bed. Pillow under head, arms secured on padded armboards <90 degree abduction. Safety belt across torso. Non-operative leg secured with tape over blanket over lower leg. Operative leg secured in David positioner. Foam padded brace at thigh of operative leg.
[2023-11-04] MEDS: BUPIVACAINE 0.25% (PF) 60 ML, EPINEPHrine 0.3 MG INJ (15:18)
[2023-11-04] MEDS: BUPIVACAINE LIPOSOME 266 MG/20 ML VIAL INJ (15:18)
[2023-11-04] MEDS: ONDANSETRON 4 MG/2 ML INJ IV (16:44)
[2023-11-04] MEDS: IBUPROFEN 400 MG TABLET PO ×2 (17:36→20:22)
[2023-11-04] MEDS: LACTATED RINGERS 1,000 ML 100 ML IV (17:36)
[2023-11-04] MEDS: ACETAMINOPHEN 325 MG TABLET 650 MG PO (17:37)
[2023-11-04] MEDS: OXYCODONE IR 5 MG TABLET PO (18:16)
[2023-11-04] MEDS: ASPIRIN EC 81 MG TABLET PO (20:22)
[2023-11-04] MEDS: TRAZODONE 50 MG TABLET PO (20:22)
[2023-11-04] MEDS: DOCUSATE 100 MG CAPSULE PO (20:23)
[2023-11-05 00:29] VITALS: BP 100/44; PULSE 50; RESP 16; TEMP 35.9; O2SAT 97
[2023-11-05] MEDS: IBUPROFEN 400 MG TABLET PO ×4 (03:40→15:33)
[2023-11-05] MEDS: ACETAMINOPHEN 325 MG TABLET 650 MG PO ×3 (03:41→15:33)
[2023-11-05] MEDS: CEFAZOLIN 2 GM/100 ML PREMIX 100 ML IV (04:10)
[2023-11-05 04:25] VITALS: BP 132/55; PULSE 50; RESP 16; TEMP 36.2; O2SAT 96
[2023-11-05] MEDS: LACTATED RINGERS 1,000 ML 100 ML IV (05:02)
[2023-11-05 05:11] LABS: Hematocrit 33.3 % (36-46); Hemoglobin 11.1 g/dL (12.0-16.0)
--- NOTE | 2023-11-05 07:09 | P.PN_ITS ---
Subjective Subjective Date Patient Seen: 11/05/23 Time Patient Seen: 07:09 Interval history: Pt lying in bed, c/o pain. OOB multiple times since surgery to urinate, has not yet worked w/ PT. Denies N/V. Her sister is planning to get her from the hospital and have the pt stay at her house since she only has 3 steps to get in the door. Sister is not currrently working and can be home to take care of pt as needed. Exam Vital Signs (past 8 hours): - 11/05/23 00:29 11/05/23 04:25 Temperature 96.6 F L 97.1 F L Pulse Rate 50 L 50 L Respiratory Rate 16 16 Blood Pressure 100/44 L 132/55 L Pulse Oximetry 97 96 Oxygen Flow Rate 0 0 Oxygen Delivery Method Room Air Oxygen Flow Rate 0 Narrative Exam Narrative: 3/5 strength in hip flexors, quadriceps, hamstrings; 4/5 DF, PF, EHL on left. Sensation to light touch intact in LLE, calf soft and compressible. JAMES dressing functioning; JUSTINE over JAMES CDI. Objective Labs 11/05/23 04:55 Labs: Laboratory Results - last 24 hr 11/05/23 04:55 Hgb 11.1 L Hct 33.3 L PFSH Medical History (Updated 10/29/23 @ 12:45 by Madhuri Chavez RN) Pneumonia (2022) Congolese speaking patient Depression COVID-19 virus infection (~10/2019) Osteoarthritis Surgical History (Updated 10/29/23 @ 11:51 by Madhuri Chavez RN) History of total right knee replacement (08/28/22) Hx of eye surgery Social History household members: significant other Smoking Status: Never smoker alcohol intake: current Assessment & Plan Post-op Assessment and plan (1) Total knee replacement status: Assessment and Plan narrative: Pt is having urinary urgency and worries that she will not be able to get to the bathroom in time when discharged; we will watch this today, have her work w/ PT, and see how she is feeling tomorrow.P Pain control is an issue this morning. Continue multimodal management w/ ice, APAP, IBPN, and oxycodone. No additional medication at this time, but will re- assess during her stay. If she makes adequate progress w/ PT and pain control today, hope to discharge tomorrow w/ sister. She has post-op medications at home. Postoperative Procedures: Procedures Operation Date: 11/04/23 10:15 Actual Procedure Side Surgeon p Total Knee Arthroplasty - Robot Left Tona Bess MD Postoperative day: 1
[2023-11-05 07:34] VITALS: BP 131/69; PULSE 50; RESP 16; TEMP 35.9; O2SAT 97
[2023-11-05] MEDS: ASPIRIN EC 81 MG TABLET PO (08:55)
[2023-11-05] MEDS: DOCUSATE 100 MG CAPSULE PO (08:56)
[2023-11-05] MEDS: OXYCODONE IR 5 MG TABLET PO ×2 (08:56→12:09)
--- NOTE | 2023-11-05 09:27 | OT.IP.EVAL ---
Addendum entered and electronically signed by Jazmin Stewart OT 11/05/23 10:37: esign Original Note: Current Diagnoses Unilateral primary osteoarthritis, left knee (11/04/23) Presence of unspecified artificial knee joint (11/04/23) Surgery Performed Operation Date: 11/04/23 10:15 Actual Procedures p Total Knee Arthroplasty - Robot(Left) - Tona Bess MD Past Medical History COVID-19 virus infection (~10/2019) Depression Osteoarthritis Pneumonia (2022) [place] speaking patient Surgical History (Last Updated 10/29/23 @ 11:51 by Madhuri Chavez RN) History of total right knee replacement (08/28/22) Hx of eye surgery Occupational Therapy Inpatient Evaluation/Re-Eval M1 PT/OT-IP Prior Functional Status Start: 11/05/23 10:19 Freq: NEEDED Status: Active Protocol: Document 11/05/23 08:45 [facility] (Rec: 11/05/23 10:35 [facility] [id number]) Medical Review Prior Functional Status Medical History Reviewed Yes Communication Independent Activities of Daily Living and IADL's Pt having more trouble with ADL needs due to her pain. Prior Functional Level (Other details) Pt to go and stay with her sister's place. House set-up based on her sister's place. Social History Household Members none Living Arrangements House Number of Floors (Floors) One Floor Number of Stairs To Enter/Railing? 3 steps with bilateral rails Home Environment Standard Height Toilet,Walk in Shower,Tub/Shower Home Equipment Bedside Commode,Shower Seat with Backrest,Hand Held Shower ,Grab Bars Near Toilet,Grab Bars In Shower Additional Social History Comment Pt has a hurry cane. M2 OT-IP Current Condition Start: 11/05/23 10:19 Freq: Status: Active Protocol: Document 11/05/23 08:45 [facility] (Rec: 11/05/23 10:35 [facility] [id number]) Occupational Therapy Current Condition Current Condition Evaluation Date 11/05/23 Treatment Diagnosis S/P L TKA Diagnosis Onset Date 11/04/23 M3 OT- IP Subjective and Pain Start: 11/05/23 10:19 Freq: Status: Active Protocol: Document 11/05/23 08:45 [facility] (Rec: 11/05/23 10:35 [facility] [id number]) OT- Subjective Occupational Therapy Visit Type Type Initial Evaluation Visit Start Time 08:45 Visit Stop Time 09:27 Occupational Therapy Visit Comments Patient Comments Pt agreed to get up and needing to use the bathroom. Patient/Caregiver Goals To go home. OT Pain Assessment Pain When Pain Assessed At Rest Pain Present Pain Present Pain Reported Location right knee Intensity 6 Scale Used Numeric (0 - 10) M4 OT- IP ADL's Start: 11/05/23 10:19 Freq: Status: Active Protocol: Document 11/05/23 08:45 [facility] (Rec: 11/05/23 10:35 [facility] [id number]) OT [id number] General Evaluation Self-Feeding Ability Independent OT ADL-Grooming General Evaluation Grooming Ability Independent Comments OT Grooming Comments Able to do while seated as too tired to get to the sink after use of the bathroom. OT ADL-Oral Care General Eval Oral Care Ability Independent OT ADL-Dressing General Eval Lower Body Dressing Ability Maximum Assistance Comments OT Dressing Comments Educated and showed pt use of traffic engineering technician and sock aid. After her last surgery pt states she stays at her sister's house for 5 months. Pt not aware of LB dressing equipment needs to be able to assist her as pt did not have OT orders for her R TKA surgery in 08/2022. OT ADL-Toileting General Evaluation Toileting Ability Contact Guard Assistance OT ADL-Bathing Comments OT Bathing Comments Not performed. M5 OT- IP IADL's Start: 11/05/23 10:19 Freq: Status: Active Protocol: Document 11/05/23 08:45 [facility] (Rec: 11/05/23 10:35 [facility] [id number]) OT-Instrumental Activities of Daily Living Deficits IADL Deficits Identified Deficits Home Safety Awareness Awareness of Need for Assistance at Home Good Awareness Ability to Problem Solve Emergency Able to Problem Solve Situations Medication Management Medication Management No Deficits Identified Money Management Money Management No Deficits Identified Meal Preparation Meal Preparation Caregiver Provides Assist Cashier And Salesperson Cashier And Salesperson Caregiver Provides Assist M6 OT- IP Functional Cognition Start: 11/05/23 10:19 Freq: Status: Active Protocol: Document 11/05/23 08:45 [facility] (Rec: 11/05/23 10:35 [facility] [id number]) Cognitive Factors Limiting Selfcare Function Cognitive Ability Level of Alertness Alert Patient Orientation Name,Age,Birthday,Month,Date, Year,Day of Week,Place, Situation Attention Span Ability Capable of Focused Attention, Capable of Sustained Attention Ability to Follow Commands Able to Follow One Step Commands Cognitive Comments Cognitive Assessment Comments Pt able to follow commands for ADL and mobility needs. OT- Vision and Hearing OT- Hearing Assessment OT- Hearing Assessment WFL OT- Vision Assessment Visual Acuity WFL M7 OT- IP Mobility and Balance Start: 11/05/23 10:19 Freq: Status: Active Protocol: Document 11/05/23 08:45 [facility] (Rec: 11/05/23 10:35 [facility] [id number]) OT- Bed Mobility Assessment Supine to Sit Supine to Sit Assist Minimal Assistance OT-Transfer Assessment Sit to and From Stand Sit to and from Stand Contact Guard Assistance Transfers Transfer Ability Contact Guard Assistance Technique Transfer Destination Bed,Chair,Toilet Transfer Technique Stand Step Pivot Devices Transfer Assistive Devices Gait Belt,Front Wheeled Walker Comments Mobility Comments Assist to help move her LLE to the edge of the bed. CGA to stand and during use of the FWW. Able to lower the FWW to increase use of BUE so able to move her LLE. OT- Balance Assessment Sitting Balance and Reactions Static Sitting Balance Ability Good Dynamic Sitting Balance Ability Good Standing Balance and Reactions Static Standing Balance Ability Fair Dynamic Standing Balance Ability Fair M8 OT- IP Objective Assessments Start: 11/05/23 10:19 Freq: Status: Active Protocol: Document 11/05/23 08:45 [facility] (Rec: 11/05/23 10:35 [facility] [id number]) OT Gross Range of Motion Upper Extremity Range of Motion Assessment Right Impaired OT Strength Upper Extremity Strength Assessment Right Impaired M9 OT- IP Assessment and Plan Start: 11/05/23 10:19 Freq: Status: Active Protocol: Document 11/05/23 08:45 [facility] (Rec: 11/05/23 10:35 [facility] [id number]) OT Summary Assessment and Plan Potential Rehabilitation Potential Excellent Analytic Complexity at Evaluation Low Summary OT Impairments Pain,Range of Motion,Strength, Balance,Functional Mobility, Grooming,Dressing,Toileting, Bathing,Toilet Transfers, Shower Transfers,Activity Tolerance Progress Towards Goals Progressing Toward Goals Assessment Summary Pt low complexity and main barriers are pain, steps, and needing extensive assist for dressing needs. Able to educated and show pt LB dressing equipment that can help increase her independence with ADL needs. In addition spoke of obtaining a toilet paper aid as well to help with her hygiene needs. Pt to go home to her sister's house and yet to schedule outpt PT services. Goals Dressing Goal Independent,Supervisor Orchard,Sock Aid Toileting Goal Independent,Toilet Paper Aid Bathing Goal Standby Assistance Toilet Transfer Goal Independent Shower Transfer Goal Standby Assistance Days to Meet Goals 10 Frequency of Treatment Frequency Of Treatment Once a Day Treatment Plan OT Treatment Plan ADL Training,Functional Mobility,Patient/Family Education,Discharge Planning Discharge Recommendations OT Discharge Recommendations Home with 24/02 Assist Available,Outpatient PT Home Equipment Needs Supervisor Orchard, long handled shoe horn, long handled brush, sock aid, toilet paper aid Transportation Needs at Discharge Private Vehicle
--- NOTE | 2023-11-05 09:35 | PT.IIE ---
Current Diagnoses Unilateral primary osteoarthritis, left knee (11/04/23) Presence of unspecified artificial knee joint (11/04/23) Surgery Performed Operation Date: 11/04/23 10:15 Actual Procedures p Total Knee Arthroplasty - Robot(Left) - Tona Bess MD Surgical History (Last Updated 10/29/23 @ 11:51 by Madhuri Chavez RN) History of total right knee replacement (08/28/22) Hx of eye surgery Medical History COVID-19 virus infection (~10/2019) Depression Osteoarthritis Pneumonia (2022) Mongolian speaking patient Physical Therapy Inpatient Evaluation/Re-Eval M1 PT/OT-IP Prior Functional Status Start: 11/05/23 11:04 Freq: NEEDED Status: Active Protocol: Document 11/05/23 09:35 AB (Rec: 11/05/23 11:18 AB [id number]) Medical Review Prior Functional Status Medical History Reviewed Yes Communication able to make needs know; kazakh as second language Activities of Daily Living and IADL's pt stated that she was modified independent with all mobilities and ambulation using a FWW indoors but uses a hurrycane for outdoor mobility but also uses a 4WW for outdoor long distance ambulation Social History Household Members none Living Arrangements House Number of Floors (Floors) One Floor Number of Stairs To Enter/Railing? pt lives alone but plans to go to her sister's house: info provided is regarding pt's sister's home set up: has 3 steps with wide rails ( can only hold on to one rail at a time) to enter the house Home Environment Standard Height Toilet,Walk in Shower Home Equipment Front Wheel Walker,Four Wheel Walker,Shower Seat with Backrest,Grab Bars Near Toilet ,Grab Bars In Shower Additional Social History Comment Pt has a hurrycane. M2 PT-IP Current Condition Start: 11/05/23 11:04 Freq: NEEDED Status: Active Protocol: Document 11/05/23 09:35 AB (Rec: 11/05/23 11:18 AB [id number]) Physical Therapy Current Condition Current Condition Evaluation Date 11/05/23 Treatment Diagnosis s/p L TKA; difficulty in walking Onset Date 11/04/23 M3 PT-IP Subjective Start: 11/05/23 11:04 Freq: NEEDED Status: Active Protocol: Document 11/05/23 09:35 AB (Rec: 11/05/23 11:18 [id number]) Subjective Physical Therapy Visit Type Type Initial Evaluation Visit Start Time 09:35 Visit Stop Time 10:05 Number of FULL STACK PYTHON DEVELOPER Visits 0 Physical Therapy Visit Comments Patient Comments agreeable to do PT; c/o knee pain and feeling drowsy Therapy Pain Assessment Pain When Pain Assessed At Rest Pain Present Pain Present Pain Reported Location Left Knee Intensity 6 Pain Behaviors Facial Grimacing,Guarding, Holding Area,Wincing Pain Management Techniques Apply Cold,Distraction, Modification of Treatment,Re- positioning,Timing of Activity with Medications M4 PT-IP Mobility and Gait Start: 11/05/23 11:04 Freq: NEEDED Status: Active Protocol: Document 11/05/23 09:35 AB (Rec: 11/05/23 11:18 [id number]) PT-Bed Mobility Assessment Sit to Supine Sit to Supine Moderate Assistance,1 Person Assistance,Bedrails PT-Transfer Assessment Sit to and From Stand Sit to and from Stand Moderate Assistance,1 Person Assistance,Use of Upper Extremities Equipment Transfer Assistive Device Gait Belt,Front Wheeled Walker Orthotic/Prosthetic Devices or Brace: No Transfers Transfer Destination Bed Transfer Technique ambulated Transfer Ability Level of Assist Moderate Assistance,Maximum Assistance,1 Person Assistance ,Use of Upper Extremities Comments Mobility Comments pt sitting on the chair and pt 's sister in room. obtained PLOF and home set up from pt and pt's sister. pt agreeable to do PT. BP in sittin /69. completed sit to stand from chair mod A and max cues. ambulated using FWW mod to max A and max cues and pt only was able to ambulate ~ 3 ft using FWW needing to sit back down due to c/o increase L knee pain. pt sat on EOB. pt presents with unsteady gait using FWW and cued for L quads activation. pt requested to go back to bed . completed sit to supine mod A for LE elevation to bed. positioned pt in bed. ice pack provided. call light and table placed wtihin reach. Gait Assessment Gait Gait Assistance Required: Moderate Assistance,Maximum Assistance Distance (Feet) 3 Able to Maintain Weight Bearing Status Yes During Gait Assistive Devices Assistive Device Gait Belt,Front Wheeled Walker Orthotic/Prosthetic Devices or Brace: No Gait Deviations General Gait Pattern Antalgic,Decreased Stride Length,Decreased Feet Clearance Factors Limiting Gait Function Factors Limiting Gait Function Decreased Activity Tolerance, Decreased Strength,Difficulty Following Directions,Limited Range of Motion,Pain,Poor Balance,Poor Safety Awareness PT-Balance Assessment Sitting Balance and Reactions Static Sitting Balance Ability Good Dynamic Sitting Balance Ability Good Standing Balance and Reactions Static Standing Balance Ability Fair Dynamic Standing Balance Ability Poor Device Used FWW M5 PT-IP Objective Assessments Start: 11/05/23 11:04 Freq: NEEDED Status: Active Protocol: Document 11/05/23 09:35 AB (Rec: 11/05/23 11:18 AB [id number]) Orientation Orientation/Cognition Level of Alertness Alert Orientation Name,Place,Situation Language Function Ability Nicaraguan as Second Language Safety Awareness Decreased Safety Awareness Memory Description Short Term Impaired Gross Range of Motion Lower Extremity ROM Impairments L knee flexion: ~ 70 deg Muscle Tone Muscle Tone WNL Yes M6 PT-IP Treatment Start: 11/05/23 11:04 Freq: NEEDED Status: Active Protocol: Document 11/05/23 09:35 AB (Rec: 11/05/23 11:18 AB [id number]) Physical Therapy Treatment Exercises Exercises Heel Slides Education Education Provided Precautions,Weight Bearing Status,Safety M7 PT-IP Assessment and Plan Start: 11/05/23 11:04 Freq: NEEDED Status: Active Protocol: Document 11/05/23 09:35 AB (Rec: 11/05/23 11:18 AB [id number]) PT Summary Assessment and Plan Potential Rehabilitation Potential Fair Status of Condition at Evaluation Evolving Summary Impairments Pain,ROM,Strength,Balance, Coordination,Sensation,Tone, Cognition,Bed Mobility, Transfers,Gait,Activity Tolerance Assessment Summary pt is a 67 y/o F s/p L TKA POD 1. pt is WBAT on LLE. pt with c/o increase L knee pain affecting activity tolerance and mobility level. pt requiring mod to max A for transfers using FWW and only tolerated ~ 3 ft of ambulation mod to max A using FWW due to c/o increase L knee pain. caregiver training set up at 1 pm today and will conduct caregiver training when appropriate. pt also has 3 steps with 1 rail to enter the house and will complete stair training prior to d/c. d/c plan depending on progress. will continue to assess. Goals Bed Mobility Goal Standby Assistance Transfer Goal Standby Assistance,Front Wheeled Walker Gait Goal Standby Assistance,Front Wheel Walker Gait Distance 50 Other Goals improve bed mobility, transfers and ambulation using FWW ~ 200 ft mod I up/down 3 steps 1 rail SBA Days to Meet Goals 5 Frequency of Treatment Frequency Of Treatment Twice a Day Treatment Plan Physical Therapy Treatment Plan Bed Mobility Training,Transfer Training,Gait Training, Therapeutic Exercise,Balance Retraining,Post Op Education, Discharge Planning,Hot or Cold Pack,Neuromuscular Re-ed, Coordination Retraining,Manual Therapy Weight Bearing Status Weight Bearing Status Weight Bear as Tolerated Allowed Weight Bearing Amount (enter % LLE WBAT or #) (%) Recommendations To Nursing Amount of Assist Needed 1 Person Assist Discharge Recommendations PT Discharge Recommendations Home with 24/02 Assist Available,Home Health,SNF Rehab,Home vs SNF Transportation Needs at Discharge Private Vehicle,Wheelchair/ Cabulance
[2023-11-05 12:44] VITALS: BP 149/65; PULSE 50; RESP 16; TEMP 36.3; O2SAT 98
--- NOTE | 2023-11-05 13:35 | PT.IPTN ---
Current Diagnoses Unilateral primary osteoarthritis, left knee (11/04/23) Presence of unspecified artificial knee joint (11/04/23) Surgery Performed Operation Date: 11/04/23 10:15 Actual Procedures p Total Knee Arthroplasty - Robot(Left) - Tona Bess MD Physical Therapy Treatment Note M2 PT-IP Current Condition Start: 11/05/23 11:04 Freq: NEEDED Status: Active Protocol: Document 11/05/23 09:35 AB (Rec: 11/05/23 11:18 AB [id number]) Physical Therapy Current Condition Current Condition Evaluation Date 11/05/23 Treatment Diagnosis s/p L TKA; difficulty in walking Onset Date 11/04/23 M3 PT-IP Subjective Start: 11/05/23 11:04 Freq: NEEDED Status: Active Protocol: Document 11/05/23 13:35 AB (Rec: 11/05/23 15:24 AB [id number]) Subjective Physical Therapy Visit Type Type Treatment Note Visit Start Time 13:35 Visit Stop Time 14:05 Number of AIRPORT ELECTRICIAN Visits 0 Physical Therapy Visit Comments Patient Comments agreeable to do PT Therapy Pain Assessment Pain When Pain Assessed At Rest Pain Present Pain Present Pain Reported Location Left Knee Intensity 6 Scale Used Numeric (0 - 10) Pain Management Techniques Apply Cold,Distraction, Modification of Treatment,Re- positioning,Timing of Activity with Medications M4 PT-IP Mobility and Gait Start: 11/05/23 11:04 Freq: NEEDED Status: Active Protocol: Document 11/05/23 13:35 AB (Rec: 11/05/23 15:24 AB [id number]) PT-Bed Mobility Assessment Supine to Sit Supine to Sit Standby Assistance,Bedrails Sit to Supine Sit to Supine Standby Assistance PT-Transfer Assessment Sit to and From Stand Sit to and from Stand Minimal Assistance,1 Person Assistance,Use of Upper Extremities Equipment Transfer Assistive Device Gait Belt,Front Wheeled Walker Orthotic/Prosthetic Devices or Brace: No Transfers Transfer Destination Chair Transfer Ability Level of Assist Minimal Assistance,1 Person Assistance,Use of Upper Extremities Comments Mobility Comments checked on pt at 1pm for caregiver training but pt's sister still not present. checked back on pt after ~ 30 min and sister in room. pt completed supine to sit SBA with use of bed rail. completed sit to stand from EOB min A and ambulated in room using FWW min A ~ 20 ft. pt sat on the chair. caregiver training conducted. educated pt's sister on how to use safety belt and how to assist pt. sister was able to put safety belt and assisted pt with sit to stand min A and ambulated pt in room using FWW min A ~ 35 ft. pt requested to go back to bed. completed sit to supine SBA. positioned pt in bed. call light and table placed within reach. ice pack provided. pt's sister stated that her son is currently putting a ramp for pt to be able to get into the house and that pt has a w/c that she can use. pt stated that pt now does not need to do stair climbing. pt stated that she wants to go home today and nurse informed . Gait Assessment Gait Gait Assistance Required: Minimum Assistance Distance (Feet) 35 Able to Maintain Weight Bearing Status Yes During Gait Assistive Devices Assistive Device Gait Belt,Front Wheeled Walker Orthotic/Prosthetic Devices or Brace: No Gait Deviations General Gait Pattern Antalgic,Decreased Stride Length Factors Limiting Gait Function Factors Limiting Gait Function Decreased Activity Tolerance, Decreased Strength,Limited Range of Motion,Pain,Poor Balance,Poor Safety Awareness M5 PT-IP Objective Assessments Start: 11/05/23 11:04 Freq: NEEDED Status: Active Protocol: Document 11/05/23 09:35 AB (Rec: 11/05/23 11:18 AB [id number]) Orientation Orientation/Cognition Level of Alertness Alert Orientation Name,Place,Situation Language Function Ability Faroese as Second Language Safety Awareness Decreased Safety Awareness Memory Description Short Term Impaired Gross Range of Motion Lower Extremity ROM Impairments L knee flexion: ~ 70 deg Muscle Tone Muscle Tone WNL Yes M6 PT-IP Treatment Start: 11/05/23 11:04 Freq: NEEDED Status: Active Protocol: Document 11/05/23 13:35 AB (Rec: 11/05/23 15:24 AB [id number]) Physical Therapy Treatment Education Education Provided Safety M7 PT-IP Assessment and Plan Start: 11/05/23 11:04 Freq: NEEDED Status: Active Protocol: Document 11/05/23 13:35 AB (Rec: 11/05/23 15:24 AB [id number]) PT Summary Assessment and Plan Potential Rehabilitation Potential Fair Summary Impairments Pain,ROM,Strength,Balance, Coordination,Sensation,Tone, Cognition,Bed Mobility, Transfers,Gait,Activity Tolerance Progress Towards Goals Slow Progress due to Pain,Slow Progress due to Activity Tolerance Assessment Summary pt requiring min A with mobility and was able to tolerate more activities this afternoon. caregiver training conducted and pt's sister was able to assist pt with mobility. pt's sister stated that a ramp is being set up at this time so that pt can just go in with a w/c. pt may go home when medically stable. Goals Bed Mobility Goal Standby Assistance Transfer Goal Standby Assistance,Front Wheeled Walker Gait Goal Standby Assistance,Front Wheel Walker Gait Distance 50 Other Goals improve bed mobility, transfers and ambulation using FWW ~ 200 ft mod I up/down 3 steps 1 rail SBA Days to Meet Goals 5 Frequency of Treatment Frequency Of Treatment Twice a Day Treatment Plan Physical Therapy Treatment Plan Bed Mobility Training,Transfer Training,Gait Training, Therapeutic Exercise,Balance Retraining,Post Op Education, Discharge Planning,Hot or Cold Pack,Neuromuscular Re-ed, Coordination Retraining,Manual Therapy Weight Bearing Status Weight Bearing Status Weight Bear as Tolerated Allowed Weight Bearing Amount (enter % LLE WBAT or #) (%) Recommendations To Nursing Amount of Assist Needed 1 Person Assist Discharge Recommendations PT Discharge Recommendations Home with 24/02 Assist Available,Home Health, Outpatient PT Transportation Needs at Discharge Private Vehicle,Wheelchair/ Cabulance
--- NOTE | 2023-11-05 14:06 | CM.DANOTE ---
Initial DCP Assessment Visit Note Reviewed EMR and team rounds for medical status and anticipated home d/c needs. Met with pt/sister at bedside to introduce self and role, pt was found to be alert/oriented, expressing readiness to return home. Her sister is at bedside and will be transporting her. Pt's plan is to stay with her sister for the first week in order to have care assistance, and transportation to OP PT, which has already been setup. Payor: L&I Attending: Dr. Tona Bess Pt is a 67 year-old F post-op day 1 following her L-total arthroplasty surgery. She shares that she had her R-knee done last year, and knows about the course of recovery and DME needs. She does use a FWW for indoors and a 4WW for outdoors as her baseline. Pt denies any further in-home or community resource needs. DCP will continue to follow until she leaves should there be any further evolving needs. Discharge Planning/Care Management CM Discharge Assessment Start: 11/05/23 13:55 Freq: Status: Active Protocol: Document 11/05/23 13:55 DPL (Rec: 11/05/23 14:06 DPL [id number]) Discharge Planning Assessment Assigned Skoog Operator MELANI Rodriguez Advance Directives? No History Provided By Medical Record Expected Length of Stay 1 Has Patient been admitted in last 30 No days? Prior Living Arrangements House Household Members none Comment Pt will plan on staying at her sister's house at d/c in order to have care postoperatively. Type of transporation used prior to Drives own vehicle admit Independent with ADL's No: modified independent Is patient alert and oriented? Yes Comment She reports that she was using a cane and walker prior to her surgery Comment Pending final eval recommendations of PT/OT, likely home with OP PT. Barriers to Discharge Yes Comment Mobility/pain a barrier at immediate post-op day 1 status . Discharge Plan Home with Home Health Transportation Arrangement Sister to provide transportation Referrals Initiated Home Health If patient plan is home with home health No : Has signed face to face form been completed? Medicare Choice List Provided No Whiteboard Updated in Patient Room with Yes name and ext. # of Skoog Operator Review Status In Process Please Provide Date Initial DC 11/05/23 Assessment Was Performed Pre-Anesthesia Assessment Start: 10/29/23 11:43 Freq: Status: Active Protocol: Document 10/29/23 11:43 CAB (Rec: 10/29/23 12:41 CAB [id number]) Pre-Anesthesia Assessment Preferred Name Milly Patient Information Reviewed Via Phone Assessment Assessment Completed With Patient,Ball Truing Machine Operator Comment Language exchange [phone] code 40 Diagnostic Results BMP/CMP,CBC,EKG,Urinalysis Comment Outside labs/EKG scanned Primary Care Provider Sofi Pederson Seen Specialist in Last 12 Months Yes Specialist Seen Orthopedist Primary Language Swedish Preferred Language Residential Air Sealing Technician Required Yes Comment Language exchange [phone] Customer code 40 Height 147.32 cm Weight 94.801 kg Body Mass Index (BMI) 43.7 Hearing Ability Normal Visual Assist Glasses Dentition Type Teeth, Natural Present,Teeth, Broken,Teeth, Missing Barriers to Learning Language Hx Anesthesia Reactions No Hx Family Anesthesia Reaction No Hx Malignant Hyperthermia No Hx Blood Transfusions No Hx Blood Transfusion Reaction No Anesthesia Review Requested No Networker No alcohol intake current alcohol intake frequency holidays/special occasions only Smoking Status Never smoker Substance Use Type does not use Pain Present Pain Reported Musculoskeletal Symptoms Abnormal Gait,Difficulty Walking,Joint Pain History of Falling (Recent or History of Yes ) Patient is completely paralyzed or No completely immobile Prosthesis or Orthotic Device Cane,Front Wheel Walker Mental Status Oriented to own ability Is patient on oxygen? No Does patient have OCAMPO/SOB No Hx Sleep Apnea No CPAP/BIPAP use not prescribed Currently Taking a Beta Abran No Can You Climb a Flight of Stairs Without Not asked SOB Hx Chest Pain Yes: Pt states on & off since , mentioned to PCP, no work up Hx SOB No Hx Syncope or Dizziness No Anti-Coagulant Therapy No Has a Decorator Mannequin No Cardiac Testing No Hx Pacemaker/ICD No Pacemaker Rep Required? No Cardiac Clearance Received Not Applicable Diet Type At Home Regular Dysphagia No Gastrointestinal Symptoms None Urinary Catheter Present No Hx Urinary Self Catheterization No Diabetes No HgbA1C 6.4 Date 08/15/23 Patient No Lactating No Hx Drug Resistant Organism No Presence of External or Internal Medical Yes: Right knee prosthesis Devices Received a COVID vaccine? Yes Marital Status Lives With none Current Living Arrangements Apartment/Condo Number of Floors (Floors) One Floor Patient Discharge Plan Description Return Home Comment Pt not advised on length of stay per surgeon Feels Safe in Current Environment Yes Been Physically Hurt or Threatened By a No Person in Current Environment Do you have thoughts of harming yourself None or others? Are you currently considering suicide? No Do you have a plan to hurt yourself or No Plan others? Do You Have Any Spiritual Beliefs That No May Affect Your HC Choices? Do You Have Any Cultural Practices That No May Affect Your HC Choices? Comment Taoist Who Can We Speak to About Patient's Care Family, friends Identifying Code for Release of Patient Declines to issue Information Health Care Proxy/Next of Kin Marlys (daughter) Destinee ( daughter) Health Care Proxy Phone Number Senida: pt to update dos Destinee: [phone] Emergency Contact Name Marlys (daughter) Destinee ( daughter) Blaise (boyfriend) Emergency Contact Phone Number Senida: pt to update dos Destinee: [phone] Bliase: [phone] Advance Directives? No Power of Heart Doctor No PAC Instructions Do not shave/clip surgical site,Durable medical equipment ,Medications to take/avoid, Nasal antibiotic,No ETOH/ petroleum product on skin DOS, NPO,Pre-surgical wash,Sensory aids,Sturdy shoes/comfortable clothes,Do not bring valuables and remove jewelry
--- NOTE | 2023-11-05 15:47 | P.DS_ITS ---
History of Present Illness History of Present Illness Date Patient Seen: 11/05/23 Time Patient Seen: 15:48 Chief complaint: Left TKA 11/03 Narrative: Operative Date/Time/Diagnoses Date of procedure: 11/04/23 Time of procedure: 12:10 Pre-op diagnosis: left knee oa Post-op diagnosis: same Procedure & Clinicians Procedure: Left total knee arthroplasty Same procedure as scheduled: Yes Indications: The patient has had progressively worsening left knee pain with radiographic changes consistent with arthritis. Non-operative management has failed and the patient has requested total knee replacement. The risks, benefits and alternatives to surgery were discussed with the patient prior to proceeding. Risks discussed included, but were not limited to, failure to relieve pain, stiffness, infection, nerve damage, deep venous thrombosis, pulmonary embolism, stroke, coma, heart attack, permanent paralysis and , as well as the potential need for eventual revision of the prosthetic. Surgeon: Tona Bess [employer] Editor: Tyrone Mcclelland Anesthesia Type: General Operative Notes Findings: Severe left knee OA, adequate stability Closure Type: primary Specimen(s): none sent Prosthetic devices, grafts, tissues, transplants, or devices: Bess and nephew BCS 2 size 3 femur, size 3 tibia, +10 poly, 32 x 7-1/2 mm patella Estimated Blood Loss (mL): 250 Blood products transfused: none Tourniquet time (min): 41 Discharge Providers Provider Discharge Date: 11/05/23 Primary care physician: FEROZ Olivera Consults: 11/04/23 06:00 Consult to Anesthesiology Routine Comment: Consulting Provider: Anesthesiologist Reason for consultation: Regional block for post operative pain control 11/04/23 16:10 Consult to Discharge Planning Routine Comment: Consult to Occupational Therapy Evaluate & Treat Comment: Physician Instructions: Evaluate and treat Consult to Physical Therapy Evaluate & Treat Comment: Physician Instructions: postop TKA protocol Discharge provider: Esther Garner PA-C Summary Hospital Course Discharge Diagnosis: Left knee osteoarthritis, s/p left total knee arthroplasty Hospital Course: Per call from pts RN on afternoon of POD# 1, pt was feeling better and wanted to go home. Pt evaluated her and felt she was appropriate for discharge. Exam Vital Signs (past 8 hours): - 11/05/23 12:44 Temperature 97.4 F L Pulse Rate 50 L Respiratory Rate 16 Blood Pressure 149/65 H Pulse Oximetry 98 Oxygen Delivery Method Room Air Oxygen Flow Rate 0 Narrative Exam Narrative: Please see today's progress note. Objective Labs 11/05/23 04:55 Labs: Laboratory Results - last 24 hr 11/05/23 04:55 Hgb 11.1 L Hct 33.3 L PFSH Medical History (Updated 10/29/23 @ 12:45 by Madhuri Chavez RN) Pneumonia (2022) Wolof speaking patient Depression COVID-19 virus infection (~10/2019) Osteoarthritis Surgical History (Updated 10/29/23 @ 11:51 by Madhuri Chavez RN) History of total right knee replacement (08/28/22) Hx of eye surgery Social History household members: none Smoking Status: Never smoker alcohol intake: current Discharge Assessment & Plan Assessment and Plan Assessment: Left knee osteoarthritis, s/p left total knee arthroplasty Plan of Treatment: Discharge home, multimodal pain control, outpt PT, f/u in office in 2 weeks as scheduled. Discharge Plan Discharge Plan Patient Disposition: Home Provider Discharge Comment: Pt has post-op pain meds @ home. ASA 81 mg BID x 6 weeks for VTE prophylaxis. Discharge orders & Medications Discharge Orders: Discharge (Order); Ordered 11/05/23 Ordered By: Esther Garner Prescriptions: Continued ibuprofen 400 mg tablet 400 mg PO Q4HR PRN (Reason: Pain) trazodone 50 mg Tablet 50 mg PO BEDTIME PRN (Reason: Sleep) famotidine 40 mg Tablet 40 mg PO DAILY PRN (Reason: GI Upset) acetaminophen 650 mg Tablet Extended Release 1,300 mg PO Q12H Follow up/Referrals: Kiersten Scott ARNP [Primary Care Provider] - Tona Bess MD [Physician] - 11/18/23 10:40 am (Follow up w/ THERESA Avelar, at [facility] office in [place].) Diet/Activity/Treatments Diet: Diet as Tolerated Activity: Walk frequently! Cold/Heat Therapy: Ice to knee as needed for pain. Skin/Wound/Dressing Care Report to your healthcare provider any signs of infection, such as:: chills, fever, night sweats, unusual drainage and unusual redness Dressing: May shower remove JUSTINE wrap on 11/07/2023 and shower. Leave dressing in place until follow up in office. Batteries will in 5-7 days, at which point you can disconnect battery pack and dispose of it. No bathing or otherwise soaking incision. Call the office if the dressing becomes saturated inside. Visit Report/Discharge Packet Instructions: DI for Knee Replacement, DI for Prescription Opioid Use Stand Alone Forms: Patient Portal/API, Surgery Discharge Discharge Data Primary Care Provider: Kiersten Scott Attending Provider: Tona Bess
--- NOTE | 2023-11-05 16:17 | PC.NURSE ---
Pt is dressed and ready for discharge home with Sister. IV has been removed. Went over d/c instructions with Pt and Sister-discussed d/c meds, time of last dose, reviewed stroke education, no driving while taking narcotics, drink plenty of fluids to prevent constipation or dehydration, Showering, s/s of infection, JAMES use and follow up. Pt and sister denied further questions. d/c instructions were provided in both [place] and [place]. Pt out via w/c by [facility] LE[employer] to POV with Sister and all belongings.
== END 2023-11-05 16:24 | disposition home or self-care (01) ==
LOC: OR 08:33 → AC 15:08
PROVIDERS: PCP Nurse Practitioner Adult Health; Referring Provider Nurse Practitioner Family; Visit Provider Orthopaedic Surgery
PROC: 0SRD0JZ Replacement of Left Knee Joint with Synthetic Substitute, Open Approach (ICD-10-PCS; CPT 27447; principal; 2023-11-04 10:15)
DX: M17.12 Unilateral primary osteoarthritis, left knee (principal); M25.762 Osteophyte, left knee
CPT/HCPCS: 27447; 36415; 73560; 85014; 85018; 97162; 97165; 97530; 97535; C1776; C9290; J0171; J0690; J1100; J2405; J2704